=== PATIENT | male | born 1935 | race Caucasian/White ===

== ENCOUNTER 2017-08-01 21:17 | Emergency (ER) | payer OTHER ==
[~2017-08-01] VITALS: Ht 182.9 cm; Wt 88.5 kg
[~2017-08-01 21:17] MED LIST: ALBU90I INH; ASPI81EC PO; CALCA500CH PO; CALCIUM GUMMIE1 EACH PO; CARV6.25 PO; CEFP200 PO; CIPR500 PO; CLOP75 PO; DIPH50 PO; LISI5 PO; METF500 PO; Nitrostat0.4 MG; Nitrostat0.4 MG SL; PIOG15 PO; PIOG30 PO; PRED20 PO; RANI150 PO; RXTRAM50 PO; SIMV10 PO; SIMV40 PO; SPACER IH; TAMS.4ER PO; TRAM50 PO; ZOLP10 PO
[2017-08-01] MEDS ORDERED: Lisinopril2.5 MG PO (21:28)
[2017-08-01] MEDS ORDERED: ASPI81CH PO (21:28)
[2017-08-01] MEDS ORDERED: CARV6.25 PO (21:28)
[2017-08-01] MEDS ORDERED: SIMV40 PO (21:29)
[2017-08-01] MEDS ORDERED: METF500 PO (21:29)
[2017-08-01] MEDS ORDERED: PIOG30 PO (21:29)
[2017-08-01 21:49] LABS: BASOPHILS ABSOLUTE AUTO 0.01 K/mm3 (0.00-0.23); BASOPHILS PERCENT AUTO 0 % (0-2); EOSINOPHILS ABSOLUTE AUTO 0.09 K/mm3 (0.00-0.68); EOSINOPHILS PERCENT AUTO 2 % (0-6); Hematocrit 39.6 % (37.0-53.0); Hemoglobin 12.8 g/dL (13.5-17.5); IMMATURE GRAN ABSOLUTE AUTO 0.01 K/mm3 (0.00-0.10); IMMATURE GRAN PERCENT AUTO 0 % (0-1); LYMPHOCYTES ABSOLUTE AUTO 1.38 K/mm3 (0.84-5.20); LYMPHOCYTES PERCENT AUTO 33 % (21-46); MONOCYTES ABSOLUTE AUTO 0.35 K/mm3 (0.16-1.47); MONOCYTES PERCENT AUTO 8 % (4-13); Mean Corpuscular HGB 31.2 pg (26.0-34.0); Mean Corpuscular HGB Conc 32.3 g/dL (31.5-36.5); Mean Corpuscular Volume 97 fL (80-100); Mean Platelet Volume 9.8 fL (9.1-12.4); NEUTROPHILS ABSOLUTE AUTO 2.38 K/mm3 (1.96-9.15); NEUTROPHILS PERCENT AUTO 57 % (41-73); Platelet Count 158 K/mm3 (150-400); RDW Coefficient Variation 13.7 % (11.7-14.2); White Blood Cell Count 4.22 K/mm3 (4.00-11.30)
[2017-08-01 22:09] LABS: Alanine Aminotransfer (ALT/SGP 19 U/L (12-78); Albumin, Blood 3.5 g/dL (3.4-5.0); Alk Phos 49 U/L (50-136); Anion Gap 6 mmol/L (6-16); Aspartate Aminotrans (AST/SGOT 16 U/L (12-37); Bilirubin, Total 0.2 mg/dL (0.1-1.0); Blood Urea Nitrogen 24 mg/dL (8-24); Bun/Creatinine Ratio 24.4 (12.0-20.0); CO2, Blood 27 mmol/L (21-32); Calcium, Blood 8.7 mg/dL (8.5-10.1); Chloride, Blood 111 mmol/L (98-108); Creatinine, Blood 0.98 mg/dL (0.60-1.20); Globulin, Blood 3.4 g/dL (2.2-4.0); Glomerular Filtration Rate >60 (60-); Glucose, Blood 138 mg/dL (70-99); Potassium, Blood 3.8 mmol/L (3.5-5.5); Sodium, Blood 144 mmol/L (136-145); Total Protein, Blood 6.9 g/dL (6.4-8.2); Troponin I <0.015 ng/mL (0.000-0.040)
== END 2017-08-01 22:59 | disposition home or self-care (01) ==
LOC: ER 21:17
PROVIDERS: Emergency Medicine
DX: R07.9 Chest pain, unspecified (principal); E11.9 Type 2 diabetes mellitus without complications; Z88.0 Allergy status to penicillin; Z88.1 Allergy status to other antibiotic agents; Z79.82 Long term (current) use of aspirin; Z79.84 Long term (current) use of oral hypoglycemic drugs; Z79.899 Other long term (current) drug therapy
CPT/HCPCS: 71046; 80053; 84484; 85025; 93005; 93010; 99283

== ENCOUNTER → 2017-08-19 | Outpatient (CLI) | payer OTHER ==
[~2017-08-19] MED LIST changes: +ASPI81CH PO; +Lisinopril2.5 MG PO
== END ==
LOC: PLD 13:58 → LAB SHORT 13:58
DX: D22.5 Melanocytic nevi of trunk (principal)
CPT/HCPCS: 88305

== ENCOUNTER → 2019-02-21 | Outpatient (CLI) | payer OTHER | END | disposition home or self-care (01) | LOC: LAB SHORT 07:51 → PLD 07:51 | DX: D22.61 Melanocytic nevi of right upper limb, including shoulder (principal) | CPT/HCPCS: 88305 ==

== ENCOUNTER 2019-10-11 09:33 | Day surgery (SDC) | payer OTHER ==
[~2019-10-11] VITALS: Ht 182.9 cm; Wt 83.8 kg
--- NOTE | 2019-10-11 10:03 | NUR ---
10/11/19 Nahun3 Prakash Orellana CALL LIGHT WITHIN REACH
== END 2019-10-11 10:49 | disposition home or self-care (01) ==
LOC: ORSCSDS 09:33
PROVIDERS: Anesthesiology
PROC: 3E0R33Z Introduction of Anti-inflammatory into Spinal Canal, Percutaneous Approach (ICD-10-PCS; principal; 2019-10-11 10:30)
DX: M51.16 Intervertebral disc disorders with radiculopathy, lumbar region (principal); I10 Essential (primary) hypertension; E78.00 Pure hypercholesterolemia, unspecified; E11.9 Type 2 diabetes mellitus without complications; G47.30 Sleep apnea, unspecified; Z79.82 Long term (current) use of aspirin; Z79.84 Long term (current) use of oral hypoglycemic drugs; Z79.899 Other long term (current) drug therapy
CPT/HCPCS: 82947; J1040

== ENCOUNTER 2021-11-13 12:21 | Day surgery (SDC) | payer OTHER ==
[~2021-11-13] VITALS: Ht 167.6 cm; Wt 79.0 kg
[~2021-11-13 12:21] MED LIST changes: +Aspir 8181 MG PO; +NITR.4SL SL; +OMEP20ER PO; +Zocor40 MG PO
--- NOTE | 2021-11-13 13:41 | NUR ---
Ambulatory in Day Surgery History, Chart, Medications and Allergies reviewed before start of procedure. PT IS A POOR HISTORIAN IN REGARDS TO MEDICATIONS. PT'S DAUGHTER IS HERE BUT IS UNSURE ABOUT WHAT MEDS HE IS ON AND WHEN HE LAST TOOK THEM. PT WAS APPARENTLY IN THE ER LAST NIGHT D/T DIFFICULTY SWALLOWING. Patient confirms NPO status and agrees with scheduled surgery. Patient States Post-Procedure ride home has been arranged.
--- NOTE | 2021-11-13 16:04 | NUR ---
11/13/21 1603 Kushal Palacios HISTORY, CHART, MEDICATIONS AND ALLERGIES REVIEWED BEFORE START OF PROCEDURE. PATIENT CONFIRMS NPO STATUS AND AGREES WITH SCHEDULED PROCEDURE. 3-LEAD EKG REVIEWED WITH PHYSICIAN PRIOR TO START OF PROCEDURE. MONITOR INTACT WITH CONTINUOUS PULSE OXIMETRY,CAPNOGRAPHY, 3-LEAD EKG, INTERMITTENT BP. SUPPLEMENTAL O2 TO BE TITRATED THROUGHOUT PROCEDURE TO MAINTAIN O2 SATURATION ABOVE 90%. PATIENT DETERMINED TO BE ASA APPROPRIATE FOR PROPOFOL SEDATION PRIOR TO START OF PROCEDURE BY DR. COUCH.
--- NOTE | 2021-11-13 17:12 | NUR ---
Patient up to Ambulate independently. Gait steady. Discharge instructions reviewed with patient. EXTENSIVE TEACHING DONE ON STARTING SLOW WITH PO INTAKE AND TO CHEW FOOD WELL. Patient verbalizes understanding. Copy given to patient to take home. Discharged via wheelchair to private car for ride home.WITH PATIENT'S DAUGHTER. DAUGHTER ENCOURAGED TO CHECK ON PATIENT FREQUENTLY HE LIVES ALONE AND TO MAKE SURE HE IS TAKING HIS MEDS CORRECTLY.
== END 2021-11-13 23:52 | disposition home or self-care (01) ==
LOC: ORSCMMR 12:21
PROVIDERS: Internal Medicine Gastroenterology
PROC: 0DJ08ZZ Inspection of Upper Intestinal Tract, Via Natural or Artificial Opening Endoscopic (ICD-10-PCS; principal; 2021-11-13 13:00)
PROC: 0D757ZZ Dilation of Esophagus, Via Natural or Artificial Opening (ICD-10-PCS; principal; 2021-11-13 13:00)
DX: R13.10 Dysphagia, unspecified (principal); K22.70 Barrett's esophagus without dysplasia; K26.9 Duodenal ulcer, unspecified as acute or chronic, without hemorrhage or perforation; K21.9 Gastro-esophageal reflux disease without esophagitis; E11.9 Type 2 diabetes mellitus without complications; G47.33 Obstructive sleep apnea (adult) (pediatric); I25.2 Old myocardial infarction; Z85.46 Personal history of malignant neoplasm of prostate; Z79.84 Long term (current) use of oral hypoglycemic drugs; Z79.899 Other long term (current) drug therapy
CPT/HCPCS: 82947; J2704; J7120

== ENCOUNTER 2022-01-20 09:31 | Day surgery (SDC) | payer OTHER ==
[~2022-01-20] VITALS: Ht 177.8 cm; Wt 74.7 kg
[2022-01-20] MEDS ORDERED: GABA100 (10:04)
[2022-01-20] MEDS ORDERED: BUDE.25 (10:04)
[2022-01-20] MEDS ORDERED: THERA-D2000 UNIT PO (10:04)
== END 2022-01-20 12:20 | disposition home or self-care (01) ==
LOC: ORSCSDS 09:31
PROVIDERS: Internal Medicine Gastroenterology
PROC: 0DH63UZ Insertion of Feeding Device into Stomach, Percutaneous Approach (ICD-10-PCS; principal; 2022-01-20 11:00)
DX: R13.10 Dysphagia, unspecified (principal); K22.70 Barrett's esophagus without dysplasia; K21.9 Gastro-esophageal reflux disease without esophagitis; R63.4 Abnormal weight loss; I10 Essential (primary) hypertension; E78.5 Hyperlipidemia, unspecified; I25.10 Atherosclerotic heart disease of native coronary artery without angina pectoris; E11.9 Type 2 diabetes mellitus without complications; G47.33 Obstructive sleep apnea (adult) (pediatric); Z85.46 Personal history of malignant neoplasm of prostate; Z79.82 Long term (current) use of aspirin; Z79.84 Long term (current) use of oral hypoglycemic drugs; Z79.899 Other long term (current) drug therapy
CPT/HCPCS: 82947; C1769; J0690; J2704; J7120

== ENCOUNTER 2022-01-22 11:17 | Observation (INO) | payer OTHER ==
[~2022-01-22] VITALS: Ht 180.3 cm; Wt 72.6 kg
[~2022-01-22 11:17] MED LIST changes: +BUDE.25; +GABA100; +THERA-D2000 UNIT PO
[2022-01-22 11:58] LABS: BASOPHILS ABSOLUTE AUTO 0.02 K/mm3 (0.00-0.23); BASOPHILS PERCENT AUTO 0 % (0-2); EOSINOPHILS ABSOLUTE AUTO 0.14 K/mm3 (0.00-0.68); EOSINOPHILS PERCENT AUTO 2 % (0-6); Hematocrit 43.7 % (37.0-53.0); Hemoglobin 14.4 g/dL (13.5-17.5); IMMATURE GRAN ABSOLUTE AUTO 0.01 K/mm3 (0.00-0.10); IMMATURE GRAN PERCENT AUTO 0 % (0-1); LYMPHOCYTES ABSOLUTE AUTO 1.17 K/mm3 (0.84-5.20); LYMPHOCYTES PERCENT AUTO 19 % (21-46); MONOCYTES ABSOLUTE AUTO 0.39 K/mm3 (0.16-1.47); MONOCYTES PERCENT AUTO 6 % (4-13); Mean Corpuscular HGB 30.9 pg (26.0-34.0); Mean Corpuscular Volume 94 fL (80-100); NEUTROPHILS ABSOLUTE AUTO 4.58 K/mm3 (1.96-9.15); NEUTROPHILS PERCENT AUTO 73 % (41-73); Platelet Count 179 K/mm3 (150-400); RDW Coefficient Variation 12.5 % (11.7-14.2); Red Blood Cell Count 4.66 M/mm3 (4.30-5.90); White Blood Cell Count 6.31 K/mm3 (4.00-11.30)
[2022-01-22 12:27] LABS: Albumin, Blood 3.9 g/dL (3.4-5.0); Albumin/Globulin Ratio 1.1 (0.8-1.8); Bilirubin, Total 0.5 mg/dL (0.1-1.0); Bun/Creatinine Ratio 41.2 (12.0-20.0); Calcium, Blood 9.6 mg/dL (8.5-10.1); Creatinine, Blood 1.31 mg/dL (0.60-1.20); Globulin, Blood 3.4 g/dL (2.2-4.0); Potassium, Blood 4.8 mmol/L (3.5-5.5); Total Protein, Blood 7.3 g/dL (6.4-8.2)
[2022-01-22] MEDS ORDERED: OMEP20ER PO (17:03)
--- NOTE | 2022-01-22 18:37 | NUR ---
PATIENT TRANSFERED FROM ER TO SURGERY FOR GTUBE PLACEMENT THIS AFTERNOON. HE WAS THEN BROUGHT UP TO MEDICAL, WITHOUT REPORT. ADMISSIONS ASSESSMENTS ARE NOT YET COMPLETE. THE FRIST TWO, AND THE LAST ONE ARE DONE, BUT THE THIRD ASSESSMENT REMAINS. PATIENT IS RUNNING 04/20 NA r 75. SCUDS ARE IN PLACE. NPO STATUS. TUBE FEED STARTS TOMORROW AT SOME POINT. PAITNE IS EVERY 6 HOUR BLOOD SUGAR. NO COVERAGE WAS NEEDED TONIGHT. HE NEEDS A PAIN MED ORDERED. FULL CODE. ALERT AND ORIENTATED, WITH SOME FORGETFULNESS. SPEECH SHOUNDS A LITTLE SLURRED.
--- NOTE | 2022-01-22 19:31 | NUR ---
RECEIVED BEDSIDE REPORT. RESP E/U ON RA. GTUBE PLACED TODAY. NO NEEDS AT THIS TIME. IVF INFUSING WITHOUT DIFFICULTY. WILL PROVIDE CARE T/O SHIFT. CALL LT IN REACH.
--- NOTE | 2022-01-22 20:29 | NUR ---
PT RESTING QUIETLY, RESP E/U ON RA, EYES CLOSED. TORADOL 15MG IV GIVEN EARLIER. CALL LT IN REACH. BED ALARM ON.
--- NOTE | 2022-01-22 21:21 | NUR ---
MOMENT OF CONFUSION. SET OFF BED ALARM WHEN GETTING OUT OF BED. DID NOT USE CALL LT. STATED TO NEEDLE CONTROL CHENILLER HE WAS GOING INTO ANOTHER ROOM HE WAS CONNECTED TO SCD'S AND IVF'S. NEEDLE CONTROL CHENILLER ASKED PT IF HE NEEDED TO USE THE BATHROOM. GAIT WAS OK. SBA. PT ASSISTED BACK TO BED. INSTRUCTED TO USE CALL LT IF HE NEEDS TO USE THE BATHROOM. BED ALARM SET AND CALL LT IN REACH.
--- NOTE | 2022-01-22 22:00 | NUR ---
PT APPEARS TO BE RESTING QUIETLY LYING ON BACK. RESP EVEN ON RA. BED ALARM ON. CALL LT IN REACH.
--- NOTE | 2022-01-23 00:18 | NUR ---
CBG 85. NEW ORDER RECEIVED FOR D5 1/2 NS AT 75 X ONE LITER TO MAINTAIN BLOOD SUGAR. PT TO START TUBE FEEDS THIS MORNING. BED ALARM ON. CALL LT IN REACH.
--- NOTE | 2022-01-23 02:25 | NUR ---
PT RESTING AFTER GOING TO THE BR ASSISTED BY GLOBE MOUNTER. D5 1/2NS AT 75 MLS/HR TO KEEP BLOOD GLUCOSE STABLE WHILE NPO. CALL LT IN REACH. BED ALARM ON.
--- NOTE | 2022-01-23 03:13 | NUR ---
PT STATES HE FEELS LIKE HE HAS SALIVA STUCK IN HIS THROAT, INSTRUCTED PT TO COUGH HARD AND TRY TO WORK IT UP SO HE COULD SPIT IN A CUP OR SUCTION IT OUT. ABLE TO SUCTION A SMALL AMT OF MUCUOS AFTER PT COUGHED. PROVIDED ORAL CARE AND SUCTIONING WITH PT'S HEAD ELEVATED. TAUGHT PT HOW TO USE THE SUCTION PROBE. TIRED AND NOW WANTS TO REST. CALL LT IN REACH. BED ALARM ON.
--- NOTE | 2022-01-23 04:00 | NUR ---
PT RESTING. CALL LT IN REACH. BED ALARM ON.
--- NOTE | 2022-01-23 04:55 | NUR ---
SHIFT SUMMARY: DURING WAKEFUL TIMES PT HAS BEEN ASKING WHEN THE PEOPLE WERE GOING TO DO THE FORMULA. PT IS READY TO PROCEED WITH TUBE FEEDING. STATES HE HASN'T EATEN ANYTHING FOR A DAY AND IS HUNGRY. NEW G-TUBE DRESSING IS CLEAN AND DRY. MEDICATED WITH TORADOL EARLY IN SHIFT X 1 FOR PAIN AROUND G-TUBE SITE. NO OTHER PAIN MED GIVEN. PT RESTED WELL OFF AND ON. IS AN ASSIST TO THE BATHROOM. BED ALARMED USED FOR PT'S FORGETFULNESS. MIDNIGHT CBG 85, PT IS NPO, D5 1/2NS AT 75 MLS/HR TO MAINTAIN CBG UNTIL TUBE FEEDS BEGIN TODAY. NO ACUTE CHANGES. WILL CONTINUE TO PROVIDE CARE UNTIL SHIFT REPORT TO ONCOMING NURSE.
--- NOTE | 2022-01-23 06:19 | NUR ---
PT RESTING QUIETLY. CALL LT IN [facility]. BED ALARM ON.
--- NOTE | 2022-01-23 17:35 | NUR ---
SHIFT SUMMARY NO ACUTE CHANGES DURING SHIFT. PT ALERT AND ORIENTED, [place], CALLS APPROPRIATELY. PT S/P PEG TUBE PLACEMENT YESTERDAY. MEDICAL/SURGERY REGISTERED NURSE ORDERED FEEDINGS FOR PT TO START. PT TO START CONTINUOUS FEEDING TONIGHT, AND BOLUS FEEDINGS TOMORROW. PRN PAIN MEDICATION ADMINISTERED X 1. WILL CONTINUE TO MONITOR. CALL LIGHT WITHIN REACH.
--- NOTE | 2022-01-24 05:04 | NUR ---
SHIFT SUMMARY PATIENT DENIES PAIN, NAUSEA, AND SHORTNESS OF BREATH. PATIENT IS A SBA WITH A FWW. PATIENT A&OX4, OCCASSIONAL CONFUSION, BUT EASILY REDIRECTABLE AND VERY PLEASANT. PATIENT SPITTING OUT A LOT OF CLEAR/WHITE FOAM SALIVA. THIS PERSISTED INTO THE NIGHT AND PATIENT AGITATED ABOUT NOT BEING ABOUT TO SLEEP DUE TO IT. TUBE FEEDING INTO PEG TUBE HAD BEEN STARTED 01/23. PATIENT FEELS THE TUBE FEEDING IS MAKING THE SPITTING WORSE, REQUESTED THIS RN SHUT IT OFF. EDUCATED PATIENT OF IMPORTANCE OF TUBE FEED. PATIENT ABD SOFT, NON TENDER. PATIENT DENIES NAUSEA. PATIENT CONCERNED TUBE FEEDING IS COMING UP HIS THROAT AND OUT HIS MOUTH BELIEVES TUBE FEEDING IS WHAT HE IS SPITTING. EDUCATED PATIENT THAT WHAT HE IS SPITTING IS NOT THE SAME COLOR TUBE FEED AND NO SIGNS/SYMPTOMS OF PATIENT NOT TOLERATING TUBE FEED. PATIENT STILL INSISTENT ON TUBE FEEDING BE TURNED OFF. THIS RN SHUT THE TUBE FEEDING OFF. AROUND 0500, REAPPROACHED PATIENT ABOUT RESTARTING TUBE FEED, PATIENT REFUSED. PATIENT USED CALL LIGHT APPROPRIATELY AT BEGINNING OF SHIFT, THEN AROUND 0300 STOPPED USING CALL LIGHT AND WOULD SET BED ALARM OFF. EDUCATED PATIENT CAPACITY MANAGER LIGHT USE.
[2022-01-24 05:05] LABS: Bun/Creatinine Ratio 30.6 (12.0-20.0); Calcium, Blood 8.9 mg/dL (8.5-10.1); Creatinine, Blood 0.91 mg/dL (0.60-1.20); Phosphorus, Blood 2.1 mg/dL (2.5-4.9); Potassium, Blood 3.8 mmol/L (3.5-5.5)
--- NOTE | 2022-01-24 09:16 | NUR ---
Order received for ST consult. Pt records reveivwed. Pt in for PEG placement due to dysphagia. PEG has been succesfully placed and pt awaiting discharge home. Pt recieving PEG based on recent MBSS (12-18-2021) findings which recommended pt be NPO. The patient has since been participating in outpatient speech therapy. Most recent outpatient ST note (01/08/22) reviewed. Per notes the patient is still not recommended to be eating or drinking by mouth. The patient has been eating and drinking for pleasure/QOL, however no textures are recommended as being safe for him. Pt is therefore not appropriate for acute care speech therapy bedside swallowing evaluation. Only a modified barium swallow would be able to determine if any textures are safe for him. As patient has been participating in swallow rehab for less than 1 month at this time, it is unlikely that there is functional improvement yet. ST will therefore cancel acute care ST consult order. The patient is recommended to continue with speech therapy with home health or outpatient services.
--- NOTE | 2022-01-24 18:00 | NUR ---
SHIFT SUMMARY NO ACUTE CHANGES DURING SHIFT. PT ALERT AND ORIENTED, CALLS APPROPRIATELY. PEG TUBE IN PLACE, BOLUS FEEDINGS CONTINUED QID. PT TOLERATING. PT SBA AMBULATING TO BATHROOM. ELECTROLYTE REPLACMENT COMPLETED THIS MORNING. MINOR PAIN NOTED TO ABD, PT STATES TOLERABLE AT THIS TIME. WILL CONTINUE TO MONITOR. CALL LIGHT WITHIN REACH.
--- NOTE | 2022-01-25 02:51 | NUR ---
PT VOICED UNABLE TO VOID. WENT TO BATHROOM A FEW TIMES, BUT STILL NO BM OR VOIDING. BLADDER SCAN 215. NOTIFIED, ORDERS FOR STRAIGHT CATH AND TO RE SCAN BLADDER IN 6-8 HRS. NO STRAIGHT CATH KITS IN THE HOSPITAL, ON BACK ORDER. 2 ATTEMPTS TO USE (1) REGULAR 14 HERNANDEZ, AND (1) TO USE COUDE. NEITHER ATTEMPTS WORKED. 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 PT REFUSED TO ALLOW ANTOTHER ATTEMPT. CHARGE NURSE NOTIFIED. WILL CALL MD BACK WITH SAID RESULTS
--- NOTE | 2022-01-25 02:59 | NUR ---
NOTIFIED OF DIFFCULTIES WITH STRAIGHT CATH WITHOUT STRAIGHT CATHETER. DISCONTINUED ORDER FOR STRAIGHT CATH.
--- NOTE | 2022-01-25 03:46 | NUR ---
PT USED CALL LIGHT, VOICED "I PEED TWICE" SINCE LAST ENTRY. AFFECT CHEERFUL. CALL LIGHT IN REACH
[2022-01-25 04:27] LABS: Albumin, Blood 3.4 g/dL (3.4-5.0); Anion Gap 8 mmol/L (6-16); Blood Urea Nitrogen 40 mg/dL (8-24); Bun/Creatinine Ratio 43.1 (12.0-20.0); CO2, Blood 27 mmol/L (21-32); Calcium, Blood 9.1 mg/dL (8.5-10.1); Chloride, Blood 105 mmol/L (98-108); Creatinine, Blood 0.93 mg/dL (0.60-1.20); Glomerular Filtration Rate 80 (60-); Glucose, Blood 158 mg/dL (70-99); Magnesium, Blood 1.8 mg/dL (1.6-2.4); Phosphorus, Blood 2.5 mg/dL (2.5-4.9); Potassium, Blood 4.4 mmol/L (3.5-5.5); Sodium, Blood 140 mmol/L (136-145)
--- NOTE | 2022-01-25 04:33 | NUR ---
JET MECHANIC SUMMARY VSS. HAD BEEN HAVING DIFFICULTIES WITH VOIDING AND HAVING A BM. BLADDER SCAN ONLY 215, WAS NOTIFIED, STRAIGHT CATH ORDERED, BUT UNABLE TO CATH PT DUE TO APPARENT OBSTRUCTION. EVENTUALLY PT WAS ABLE TO VOID X 2. HAS SOPHIA RESTING QUIETLY WITHERWISE WITH OCCASIONAL INTERRUPTIONS. UP TO BATHROOM STEADY AMBULATION. SCD IN USE. CALL LIGHT IN REACH. WILL CONTINUE TO MONITOR
--- NOTE | 2022-01-25 15:08 | NUR ---
PT REPORTED "BLACK" BM THIS AFTERNOON; ASKED HIM TO SAVE NEXT BM FOR ASSESSMENT. AT ~ 1445, PT GOT UP TO BR, REPORTED THAT HE'D HAD ANOTHER BM. UPON ASSESSMENT, STOOL APPEARS BLACK AND TARRY, SEMI FORMED. PT DENIED PAIN, DIZZINESS, NAUSEA. REPORTED THIS TO DR. CHEN, WHO STATED THAT THIS MAY BE OLD BLOOD FROM PEG INSERTION, WILL RECOMMEND THAT PT F/U WITH PCP AFTER D/C IF IT CONTINUES. WILL CONTINUE TO MONITOR.
--- NOTE | 2022-01-25 19:27 | NUR ---
SHIFT SUMMARY: PT STILL WITH BLACK TARRY STOOL, DENIES WEAKNESS, DIZZINESS, PALPITATIONS; DR. CHEN NOTIFIED EARLIER. DENIED PAIN. NO CHANGES TO NEURO EXAM, BUT HEARING LOSS IMPACTS LEARNING (WEARS HEARING AIDS). TOLERATING BOLUS TF WITH GLUCERNA; USING PUMP TO INFUSE WE DO NOT HAVE CANS OF PRODUCT. DEMONSTRATED TO PATIENT HOW TO DO BOLUS FEEDS AT HOME USING WATER AND GAVE HIM EDUCATIONAL HAND OUTS ON CARING FOR PEG AT HOME, HOW TO DO BOLUS FEEDS AND MEDICATIONS. CBG < 150 THIS SHIFT. DAUGHTER LASHAUN VISITED TODAY. AMBULATING TO BR.
--- NOTE | 2022-01-26 04:40 | NUR ---
SYSTEM ADMIN SUMMARY AWAKE AT INTERVALS, UP TO BATHROOM TO VOID AND HAVE BM. REPORTED AND NURSE OBSERVED SMALL TARRY STOOLS. (MD AWARE BUT WILL HAVE AM RN DISCUSS IT WITH MD AGAIN LATER PER PT REQUEST). PEG TUBE FEEDING TOLERATED WELL. PEG TUBE DRESSING INTACT. VSS. RESTING QUIETLY AT THIS TIME. CALL LIGHT IN REACH.
[2022-01-26 05:14] LABS: Albumin, Blood 2.9 g/dL (3.4-5.0); Anion Gap 9 mmol/L (6-16); Blood Urea Nitrogen 41 mg/dL (8-24); Bun/Creatinine Ratio 45.9 (12.0-20.0); CO2, Blood 27 mmol/L (21-32); Calcium, Blood 8.6 mg/dL (8.5-10.1); Chloride, Blood 105 mmol/L (98-108); Creatinine, Blood 0.89 mg/dL (0.60-1.20); Glomerular Filtration Rate 83 (60-); Glucose, Blood 135 mg/dL (70-99); Phosphorus, Blood 2.7 mg/dL (2.5-4.9); Potassium, Blood 4.3 mmol/L (3.5-5.5); Sodium, Blood 141 mmol/L (136-145)
[2022-01-26 11:50] LABS: BASOPHILS PERCENT AUTO 0 % (0-2); EOSINOPHILS ABSOLUTE AUTO 0.25 K/mm3 (0.00-0.68); EOSINOPHILS PERCENT AUTO 5 % (0-6); Hematocrit 30.2 % (37.0-53.0); Hemoglobin 10.5 g/dL (13.5-17.5); IMMATURE GRAN ABSOLUTE AUTO 0.02 K/mm3 (0.00-0.10); IMMATURE GRAN PERCENT AUTO 0 % (0-1); LYMPHOCYTES ABSOLUTE AUTO 1.15 K/mm3 (0.84-5.20); LYMPHOCYTES PERCENT AUTO 21 % (21-46); MONOCYTES ABSOLUTE AUTO 0.39 K/mm3 (0.16-1.47); MONOCYTES PERCENT AUTO 7 % (4-13); Mean Corpuscular HGB 31.7 pg (26.0-34.0); Mean Corpuscular HGB Conc 34.8 g/dL (31.5-36.5); Mean Corpuscular Volume 91 fL (80-100); Mean Platelet Volume 10.4 fL (9.1-12.4); NEUTROPHILS ABSOLUTE AUTO 3.56 K/mm3 (1.96-9.15); NEUTROPHILS PERCENT AUTO 66 % (41-73); Platelet Count 146 K/mm3 (150-400); RDW Coefficient Variation 12.7 % (11.7-14.2); RDW Standard Deviation 42.5 fL (35.1-46.3); Red Blood Cell Count 3.31 M/mm3 (4.30-5.90); White Blood Cell Count 5.37 K/mm3 (4.00-11.30)
--- NOTE | 2022-01-26 18:38 | NUR ---
SHIFT SUMMARY PT TOLERATING BOLUS FEEDS WELL TODAY. 1600 FEED HAD TO BE HELD UNTIL 1800 DUE TO LASTING RESIDUAL VOLUMES OF MORE THAN 80CC. PT EDUCATED ON HOW TO FEED HIMSELF USING HIS PEG FOR HIS 1800 FEED. PT DID WELL DOING THIS HIMSELF WITH SOME INSTRUCTION. PT IN GOOD SPIRITS. REMAINS NPO. MOISTENING MOUTH WITH ORAL SWABS. BLACK TARRY STOOL REMAIN. DR. HIGH AWARE. LOVENOX HELD THIS AM PER DR. BERRY. NO OTHER ACUTE CHANGES IN ASSESSMENT AT THIS TIME. VS REVIEWED. PT IN ROOM WITH AT BEDSIDE.
--- NOTE | 2022-01-27 07:29 | NUR ---
SPECIALTY FINISHING UTILITY PERSON SUMMARY AWAKENED FOR ACCU CHECKS EVERY 6 HRS. NO NEED FOR INSULIN COVERAGE. PEG TUBE FEEDINGS TOLERATED WELL. AFFECT CHEERFUL GASPER AWAKENED FOR PROCEDURES. ALTHOUGH STILL HAVING TARRY STOOLS, STATED THEYRE GETTING "BETTER". VSS. NO NOTED ACUTE DISTRESS. CALL LIGHT IN REACH. UP AD DUSTIN. WILL CONTINUE TO MONITOR
[2022-01-27 10:09] LABS: BASOPHILS ABSOLUTE AUTO 0.01 K/mm3 (0.00-0.23); BASOPHILS PERCENT AUTO 0 % (0-2); EOSINOPHILS ABSOLUTE AUTO 0.24 K/mm3 (0.00-0.68); EOSINOPHILS PERCENT AUTO 5 % (0-6); Hematocrit 30.4 % (37.0-53.0); IMMATURE GRAN ABSOLUTE AUTO 0.03 K/mm3 (0.00-0.10); IMMATURE GRAN PERCENT AUTO 1 % (0-1); LYMPHOCYTES ABSOLUTE AUTO 1.15 K/mm3 (0.84-5.20); LYMPHOCYTES PERCENT AUTO 23 % (21-46); MONOCYTES ABSOLUTE AUTO 0.31 K/mm3 (0.16-1.47); MONOCYTES PERCENT AUTO 6 % (4-13); Mean Corpuscular HGB 30.6 pg (26.0-34.0); Mean Corpuscular HGB Conc 32.9 g/dL (31.5-36.5); Mean Corpuscular Volume 93 fL (80-100); Mean Platelet Volume 10.4 fL (9.1-12.4); NEUTROPHILS ABSOLUTE AUTO 3.26 K/mm3 (1.96-9.15); NEUTROPHILS PERCENT AUTO 65 % (41-73); Platelet Count 152 K/mm3 (150-400); RDW Coefficient Variation 12.6 % (11.7-14.2); RDW Standard Deviation 42.5 fL (35.1-46.3); Red Blood Cell Count 3.27 M/mm3 (4.30-5.90)
[2022-01-27 10:21] LABS: Bun/Creatinine Ratio 35.9 (12.0-20.0); Calcium, Blood 8.7 mg/dL (8.5-10.1); Creatinine, Blood 0.92 mg/dL (0.60-1.20); Potassium, Blood 4.2 mmol/L (3.5-5.5)
--- NOTE | 2022-01-27 16:44 | NUR ---
SHIFT SUMMARY PT CONTINUES TO HAVE BLACK TARRY STOOLS. SAMPLE COLLECTED AND SENT TO LAB FOR A GUIAC. DR. HIGH SPOKE TO DR. COUCH TODAY. PT TOLERATING PT TUBE FEEDS TODAY. 1600 FEED WAS COMPLETED BY THE PATIENT, INDEPENDENTLY WITHOUT COMPLICATION. PT BECOMING MORE FAMILIAR WITH HOW TO CARE FOR HIS PEG TUBE. NO OTHER ACUTE CHANGES IN ASSESSMENT AT THIS TIME. PT REMAIN NPO DUE TO UNSAFE SWALLOW. VS REVIEWED. PT RESTING IN BED. CALL LIGHT IN REACH.
[2022-01-27 21:20] LABS: Hematocrit 29.4 % (37.0-53.0)
--- NOTE | 2022-01-28 04:05 | NUR ---
INDEX CLERK SUMMARY UP AD DUSTIN. AFFECT CHEERFUL WHEN SPEAKING TO STAFF. VSS. ACCU CHECK 161. HAS GI MD IN TO SEE PT AT , SCHEDULED EGD AND PREP FOR LATER TODAY. HAS BEEN RESTING QUIETLY WITH FEW INTERRUPTIONS. CALL LIGHT IN REACH
[2022-01-28 08:23] LABS: BASOPHILS ABSOLUTE AUTO 0.01 K/mm3 (0.00-0.23); BASOPHILS PERCENT AUTO 0 % (0-2); EOSINOPHILS ABSOLUTE AUTO 0.25 K/mm3 (0.00-0.68); EOSINOPHILS PERCENT AUTO 5 % (0-6); Hematocrit 27.6 % (37.0-53.0); Hemoglobin 9.5 g/dL (13.5-17.5); IMMATURE GRAN ABSOLUTE AUTO 0.03 K/mm3 (0.00-0.10); IMMATURE GRAN PERCENT AUTO 1 % (0-1); LYMPHOCYTES ABSOLUTE AUTO 1.34 K/mm3 (0.84-5.20); LYMPHOCYTES PERCENT AUTO 25 % (21-46); MONOCYTES ABSOLUTE AUTO 0.31 K/mm3 (0.16-1.47); MONOCYTES PERCENT AUTO 6 % (4-13); Mean Corpuscular HGB 31.8 pg (26.0-34.0); Mean Corpuscular HGB Conc 34.4 g/dL (31.5-36.5); Mean Corpuscular Volume 92 fL (80-100); Mean Platelet Volume 10.5 fL (9.1-12.4); NEUTROPHILS ABSOLUTE AUTO 3.38 K/mm3 (1.96-9.15); NEUTROPHILS PERCENT AUTO 64 % (41-73); Platelet Count 151 K/mm3 (150-400); RDW Standard Deviation 42.8 fL (35.1-46.3); Red Blood Cell Count 2.99 M/mm3 (4.30-5.90); White Blood Cell Count 5.32 K/mm3 (4.00-11.30)
[2022-01-28 09:47] LABS: Stool Occult Blood Guaiac 1 Pos (Neg)
--- NOTE | 2022-01-28 16:09 | NUR ---
01/28/22 1609 Tri Alvarez HISTORY, CHART, MEDICATIONS AND ALLERGIES REVIEWED BEFORE START OF PROCEDURE. PATIENT CONFIRMS NPO STATUS AND AGREES WITH SCHEDULED PROCEDURE. 3-LEAD EKG REVIEWED WITH PHYSICIAN PRIOR TO START OF PROCEDURE. MONITOR INTACT WITH CONTINUOUS PULSE OXIMETRY,CAPNOGRAPHY, 3-LEAD EKG, INTERMITTENT BP. SUPPLEMENTAL O2 TO BE TITRATED THROUGHOUT PROCEDURE TO MAINTAIN O2 SATURATION ABOVE 90%. PATIENT DETERMINED TO BE ASA APPROPRIATE FOR PROPOFOL SEDATION PRIOR TO START OF PROCEDURE BY . PT HAS HX OF SLEEP APNEA WITHOUT CPAP USE. PT BMI 23.7
--- NOTE | 2022-01-28 18:08 | NUR ---
PATIENT A/OX4, UP INDEPENDENTLY IN ROOM. VSS, ON RA. NO STOOLS TODAY. WENT DOWN FOR EGD, NO ACTIVE BLEEDING. RESUMED BOLUS TUBE FEEDS THIS EVENING. PATIENT DENIES ANY PAIN OR DISCOMFORT. TOLERATING FEEDS WELL. SUPPLIES TO BE DELIVERED TO HIS HOME TOMORROW. PATIENT EDUCATED ABOUT DOING TUBE FEEDS AND FEELS COMFORTABLE WITH SUPPLIES AND SCHEDULE. DAUGHTER LASHAUN ALSO AT BEDSIDE DURING EDUCATION.
[2022-01-29 04:53] LABS: BASOPHILS ABSOLUTE AUTO 0.01 K/mm3 (0.00-0.23); BASOPHILS PERCENT AUTO 0 % (0-2); EOSINOPHILS ABSOLUTE AUTO 0.27 K/mm3 (0.00-0.68); EOSINOPHILS PERCENT AUTO 6 % (0-6); Hematocrit 29.1 % (37.0-53.0); Hemoglobin 9.8 g/dL (13.5-17.5); IMMATURE GRAN ABSOLUTE AUTO 0.02 K/mm3 (0.00-0.10); IMMATURE GRAN PERCENT AUTO 0 % (0-1); LYMPHOCYTES PERCENT AUTO 26 % (21-46); MONOCYTES ABSOLUTE AUTO 0.37 K/mm3 (0.16-1.47); MONOCYTES PERCENT AUTO 8 % (4-13); Mean Corpuscular HGB 31.6 pg (26.0-34.0); Mean Corpuscular HGB Conc 33.7 g/dL (31.5-36.5); Mean Corpuscular Volume 94 fL (80-100); Mean Platelet Volume 10.6 fL (9.1-12.4); NEUTROPHILS ABSOLUTE AUTO 2.96 K/mm3 (1.96-9.15); NEUTROPHILS PERCENT AUTO 60 % (41-73); Platelet Count 171 K/mm3 (150-400); RDW Coefficient Variation 12.9 % (11.7-14.2); RDW Standard Deviation 43.8 fL (35.1-46.3); White Blood Cell Count 4.93 K/mm3 (4.00-11.30)
[2022-01-29 05:18] LABS: Albumin, Blood 2.9 g/dL (3.4-5.0); Albumin/Globulin Ratio 1.1 (0.8-1.8); Bilirubin, Total 0.3 mg/dL (0.1-1.0); Bun/Creatinine Ratio 27.3 (12.0-20.0); Calcium, Blood 8.4 mg/dL (8.5-10.1); Creatinine, Blood 0.88 mg/dL (0.60-1.20); Globulin, Blood 2.7 g/dL (2.2-4.0); Potassium, Blood 4.4 mmol/L (3.5-5.5); Total Protein, Blood 5.6 g/dL (6.4-8.2)
--- NOTE | 2022-01-29 07:37 | NUR ---
PUMP AND BLOWER OPERATOR SUMMARY NO ACUTE CHANGES. A/OX4. INDPENDENT IN THE ROOM. GAVE A BOLUS FEEDING AT BEDTIME AND PT SAT UP FOR 45MINS POST FEEDING. PT TOLERATED; DENIED NAUSEA/BLOATING. PT ABLE TO DIRECT FEEDING; VERBALIZE AND DEMONSTRATE HOW TO FEED; PT WAS UNSURE ABOUT HOW MUCH TO FLUSH POST FEEDING. CONTINUE Q6 BS; STABLE--COVERAGE NOT REQUIRED. PT ABLE TO ADVOCATE FOR HIS NEEDS. CALL LIGHT IN REACH.
== END 2022-01-29 12:42 | disposition home health service (06) ==
LOC: ER 11:17 → MEDS 11:18 → SURS 11:18 → ER 14:30 → MEDS 15:40
PROVIDERS: Family Medicine; Physician Assistant; ADMIT Family Medicine
DX: R13.10 Dysphagia, unspecified (principal); K92.1 Melena; I25.10 Atherosclerotic heart disease of native coronary artery without angina pectoris; E11.40 Type 2 diabetes mellitus with diabetic neuropathy, unspecified; I11.0 Hypertensive heart disease with heart failure; I50.32 Chronic diastolic (congestive) heart failure; K59.00 Constipation, unspecified; K44.9 Diaphragmatic hernia without obstruction or gangrene; K22.70 Barrett's esophagus without dysplasia; G47.33 Obstructive sleep apnea (adult) (pediatric); K21.9 Gastro-esophageal reflux disease without esophagitis; Z88.0 Allergy status to penicillin; Z79.84 Long term (current) use of oral hypoglycemic drugs; Z95.5 Presence of coronary angioplasty implant and graft; Z88.8 Allergy status to other drugs, medicaments and biological substances; Z85.46 Personal history of malignant neoplasm of prostate
CPT/HCPCS: 36415; 80048; 80053; 80069; 82272; 82947; 83690; 83735; 84100; 85014; 85018; 85025; 96372; 96374; 96375; 99152; 99153; 99284; A9270; C1769; C1887; C9113; G0378; J1650; J1885; J2250; J2310; J2704; J3010; J7040; J7042; J7060; J7120; Q9967

== ENCOUNTER 2022-02-06 11:42 | Emergency (ER) | payer OTHER ==
[~2022-02-06] VITALS: Ht 182.9 cm; Wt 78.0 kg
== END 2022-02-06 12:47 | disposition home or self-care (01) ==
LOC: ER 11:42
DX: K94.23 Gastrostomy malfunction (principal); I25.10 Atherosclerotic heart disease of native coronary artery without angina pectoris; E11.9 Type 2 diabetes mellitus without complications; Z88.0 Allergy status to penicillin; Z88.8 Allergy status to other drugs, medicaments and biological substances; Z79.84 Long term (current) use of oral hypoglycemic drugs; Z79.899 Other long term (current) drug therapy; Z95.5 Presence of coronary angioplasty implant and graft
CPT/HCPCS: 99282

== ENCOUNTER 2022-02-20 11:21 | Emergency (ER) | payer OTHER ==
[~2022-02-20] VITALS: Ht 182.9 cm; Wt 73.5 kg
== END 2022-02-20 12:45 | disposition home or self-care (01) ==
LOC: ER 11:21
DX: K94.23 Gastrostomy malfunction (principal); Y83.8 Other surgical procedures as the cause of abnormal reaction of the patient, or of later complication, without mention of misadventure at the time of the procedure; I10 Essential (primary) hypertension; I25.10 Atherosclerotic heart disease of native coronary artery without angina pectoris; E11.40 Type 2 diabetes mellitus with diabetic neuropathy, unspecified; Z88.0 Allergy status to penicillin; Z79.84 Long term (current) use of oral hypoglycemic drugs; Z79.899 Other long term (current) drug therapy
CPT/HCPCS: 99282

== ENCOUNTER 2022-04-16 11:29 | Emergency (ER) | payer OTHER ==
[~2022-04-16] VITALS: Ht 182.9 cm; Wt 77.1 kg
== END 2022-04-16 13:59 | disposition home or self-care (01) ==
LOC: ER 11:29
DX: K94.23 Gastrostomy malfunction (principal); Z88.0 Allergy status to penicillin; Z88.8 Allergy status to other drugs, medicaments and biological substances; Z79.899 Other long term (current) drug therapy; Z79.84 Long term (current) use of oral hypoglycemic drugs; I10 Essential (primary) hypertension; I25.10 Atherosclerotic heart disease of native coronary artery without angina pectoris; E11.40 Type 2 diabetes mellitus with diabetic neuropathy, unspecified; Z85.46 Personal history of malignant neoplasm of prostate
CPT/HCPCS: 99282

== ENCOUNTER 2022-05-26 08:44 | Day surgery (SDC) | payer OTHER ==
[~2022-05-26] VITALS: Ht 180.3 cm; Wt 78.0 kg
--- NOTE | 2022-05-26 11:17 | NUR ---
PT AND DAUGHTER VERBALIZE UNDERSTANDING WRITTEN AND VERBAL INSTRUCTIONS. DENIES QUESTIONS OR CONCERNS. PT IV DC'D. CATH INTACT. PRESSURE DSG APPLIED. PT DRESS AND AMBULATES TO RESTROOM AND BACK WITHOUT DIFF. PT DC TO HOME VIA WC BY DTR.
== END 2022-05-26 11:25 | disposition home or self-care (01) ==
LOC: MHTC 08:44
DX: K94.20 Gastrostomy complication, unspecified (principal); R13.10 Dysphagia, unspecified
CPT/HCPCS: 76937; 99152; C1769; J2250; J3010; J7040; J7050; Q9967

== ENCOUNTER → 2022-07-14 | Outpatient (CLI) | payer OTHER | END | disposition home or self-care (01) | LOC: LAB 08:30 → LAB SHORT 08:30 | DX: H72.91 Unspecified perforation of tympanic membrane, right ear (principal) | CPT/HCPCS: 87070; 87077; 87186; 87205 ==

== ENCOUNTER → 2022-12-02 | Outpatient (CLI) | payer OTHER | LOC: LAB 08:14 → LAB SHORT 08:14 → PLD 08:14 | DX: L60.2 Onychogryphosis (principal); B35.1 Tinea unguium | CPT/HCPCS: 88305; 88312 ==

== ENCOUNTER 2022-12-15 09:36 | Emergency (ER) | payer OTHER ==
[~2022-12-15] VITALS: Ht 182.9 cm; Wt 72.6 kg
[2022-12-15 10:01] VITALS: BP 109/97
== END 2022-12-15 12:24 | disposition home or self-care (01) ==
LOC: ER 09:36
DX: K94.23 Gastrostomy malfunction (principal); I10 Essential (primary) hypertension; I25.10 Atherosclerotic heart disease of native coronary artery without angina pectoris; E11.40 Type 2 diabetes mellitus with diabetic neuropathy, unspecified
CPT/HCPCS: 43762; 74018; 99282-25; Q9963

== ENCOUNTER 2022-12-16 14:30 | Day surgery (SDC) | payer OTHER ==
--- NOTE | 2022-12-16 15:00 | NUR ---
PATIENT ARRIVED FROM OFFICE FOR A G TUBE EXCHANGE. A&O. VITALS STABLE.
[2022-12-16 15:16] VITALS: BP 99/60
--- NOTE | 2022-12-16 16:25 | NUR ---
PATIENT RETURNED FROM PHOTOGRAPHY COLORIST PROCEDURE AND UP GETTING DRESSED. DENIES DISCOMFORT. G-TUBE INTACT. NO QUESTIONS. PATIENT TRANSFERRED VIA WHEELCHAIR TO FRONT ENTRANCE. DAUGHTER WITH PATIENT.
== END 2022-12-16 22:51 | disposition home or self-care (01) ==
LOC: MHTC 14:30
DX: Z43.1 Encounter for attention to gastrostomy (principal); R13.10 Dysphagia, unspecified; Z88.0 Allergy status to penicillin; K94.20 Gastrostomy complication, unspecified
CPT/HCPCS: 36415; 80048; 85007; 85027; 85610; C1769; C1887; Q9967

== ENCOUNTER 2022-12-17 15:18 | Emergency (ER) | payer OTHER ==
[~2022-12-17] VITALS: Ht 182.9 cm; Wt 74.4 kg
[2022-12-17 15:33] VITALS: BP 113/60
== END 2022-12-17 18:03 | disposition home or self-care (01) ==
LOC: ER 15:18
DX: K94.23 Gastrostomy malfunction (principal); Z88.0 Allergy status to penicillin; Z88.8 Allergy status to other drugs, medicaments and biological substances; Z79.899 Other long term (current) drug therapy; Z79.84 Long term (current) use of oral hypoglycemic drugs; I10 Essential (primary) hypertension; I25.10 Atherosclerotic heart disease of native coronary artery without angina pectoris; E11.40 Type 2 diabetes mellitus with diabetic neuropathy, unspecified; R13.10 Dysphagia, unspecified
CPT/HCPCS: 43762; 49465; 74019; 99282-25; Q9963

== ENCOUNTER 2022-12-18 12:04 | Emergency (ER) | payer OTHER ==
[~2022-12-18] VITALS: Ht 182.9 cm; Wt 72.6 kg
[2022-12-18 12:13] VITALS: BP 130/65
[2022-12-19] MEDS ORDERED: BACTRIM DS TAB1 EAC1 PO (17:52)
[2022-12-19] MEDS ORDERED: Cleocin HCl150 MG PO (17:52)
== END 2022-12-18 16:25 | disposition home or self-care (01) ==
LOC: ER 12:04
DX: K94.23 Gastrostomy malfunction (principal); Z88.0 Allergy status to penicillin; Z88.8 Allergy status to other drugs, medicaments and biological substances; Z79.899 Other long term (current) drug therapy; Z79.84 Long term (current) use of oral hypoglycemic drugs; I10 Essential (primary) hypertension; E11.40 Type 2 diabetes mellitus with diabetic neuropathy, unspecified; I25.10 Atherosclerotic heart disease of native coronary artery without angina pectoris
CPT/HCPCS: 43762; 49465; 99282-25; Q9963

== ENCOUNTER 2022-12-19 15:41 | Emergency (ER) | payer OTHER ==
[~2022-12-19] VITALS: Ht 182.9 cm; Wt 72.6 kg
[2022-12-19 15:43] VITALS: BP 128/67
[2022-12-19] MEDS ORDERED: BACTRIM DS TAB1 EAC1 PO (17:52)
[2022-12-19] MEDS ORDERED: Cleocin HCl150 MG PO (17:52)
== END 2022-12-19 18:00 | disposition home or self-care (01) ==
LOC: ER 15:41
DX: K94.29 Other complications of gastrostomy (principal); I10 Essential (primary) hypertension; I25.10 Atherosclerotic heart disease of native coronary artery without angina pectoris; E11.40 Type 2 diabetes mellitus with diabetic neuropathy, unspecified; Z85.46 Personal history of malignant neoplasm of prostate; Z95.5 Presence of coronary angioplasty implant and graft; Z88.0 Allergy status to penicillin; Z79.899 Other long term (current) drug therapy; Z79.84 Long term (current) use of oral hypoglycemic drugs
CPT/HCPCS: 99282; A9270

== ENCOUNTER 2023-10-29 09:50 | Emergency (ER) | payer OTHER ==
[~2023-10-29] VITALS: Ht 182.9 cm; Wt 77.6 kg
[~2023-10-29 09:50] MED LIST changes: +BACTRIM DS TAB1 EAC1 PO; +Cleocin HCl150 MG PO
[2023-10-29 10:06] VITALS: BP 128/70
== END 2023-10-29 11:25 | disposition home or self-care (01) ==
LOC: ER 09:50
DX: K94.29 Other complications of gastrostomy (principal); I10 Essential (primary) hypertension; E11.40 Type 2 diabetes mellitus with diabetic neuropathy, unspecified; Z79.899 Other long term (current) drug therapy; Z79.84 Long term (current) use of oral hypoglycemic drugs; Z88.0 Allergy status to penicillin; Z88.1 Allergy status to other antibiotic agents
CPT/HCPCS: 49465; Q9963

== ENCOUNTER 2023-10-29 19:20 | Emergency (ER) | payer OTHER ==
[~2023-10-29] VITALS: Ht 182.9 cm; Wt 77.6 kg
[2023-10-29 19:23] VITALS: BP 123/79
== END 2023-10-29 20:31 | disposition home or self-care (01) ==
LOC: ER 19:20
DX: K94.23 Gastrostomy malfunction (principal); Y73.8 Miscellaneous gastroenterology and urology devices associated with adverse incidents, not elsewhere classified; I10 Essential (primary) hypertension; I25.2 Old myocardial infarction; E11.40 Type 2 diabetes mellitus with diabetic neuropathy, unspecified; Z79.84 Long term (current) use of oral hypoglycemic drugs; Z79.899 Other long term (current) drug therapy; Z88.0 Allergy status to penicillin; Z88.1 Allergy status to other antibiotic agents
CPT/HCPCS: 99282

== ENCOUNTER → 2024-01-25 | Outpatient (CLI) | payer OTHER | LOC: LAB SHORT 18:33 → LAB 18:33 | DX: R30.0 Dysuria (principal) | CPT/HCPCS: 87077; 87086; 87186 ==

== ENCOUNTER 2024-05-02 10:52 | Emergency (ER) | payer OTHER ==
[~2024-05-02] VITALS: Ht 182.9 cm; Wt 78.0 kg
[2024-05-02 11:11] VITALS: BP 131/76
== END 2024-05-02 13:12 | disposition home or self-care (01) ==
LOC: ER 10:52
DX: K94.23 Gastrostomy malfunction (principal); I10 Essential (primary) hypertension; I25.10 Atherosclerotic heart disease of native coronary artery without angina pectoris; E11.42 Type 2 diabetes mellitus with diabetic polyneuropathy; Z95.5 Presence of coronary angioplasty implant and graft; Z88.0 Allergy status to penicillin; Z88.1 Allergy status to other antibiotic agents; Z79.84 Long term (current) use of oral hypoglycemic drugs; Z79.899 Other long term (current) drug therapy; Z59.89 Other problems related to housing and economic circumstances
CPT/HCPCS: 49465; 99283-25; Q9963